=== PATIENT | female | born 1935 | race Two or more races ===

== ENCOUNTER 2017-03-21 11:01 | Outpatient (CLI) | payer MEDICARE, OTHER ==
[~2017-03-21 11:01] MED LIST: AMBIEN10 M1 ORAL; AUGMENTIN 500M500 MG ORAL; BIAXIN500 MG ORAL; DEXILANT60 MG ORAL; HYCODAN; IBUPROFEN600 MG ORAL; LEXAPRO10 MG ORAL; PERCOCET1 TAB ORAL; PROAIR HFA8.5 GM INH; VIAGRA25 MG ORAL; cholesterol med
[2017-03-21 11:20] VITALS: BP 117/53
--- NOTE | 2017-03-21 11:33 | GI Progress Note ---
Assessment/Plan Problems: (1) GERD (gastroesophageal reflux disease) ICD Codes: K21.9 - Gastro-esophageal reflux disease without esophagitis SNOMED: 122244193 (2) Ischemic colitis ICD Codes: K55.9 - Vascular disorder of intestine, unspecified SNOMED: 87291087 (3) Gastritis ICD Codes: K29.70 - Gastritis, unspecified, without bleeding SNOMED: 0936418 (4) Diverticulosis ICD Codes: K57.90 - Diverticulosis of intestine, part unspecified, without perforation or abscess without bleeding SNOMED: 153403354 (5) History of colon polyps ICD Codes: Z86.010 - Personal history of colonic polyps SNOMED: 936535348 Status: stable Status Narrative Seen with Dr. Perez. Assessment/Plan colonic polyps x 2 in 2013 recommend EGD/colonoscopy >> refused by daughter at this time rx PPI BID ordered abdominal U/S f/u with cardiology RTC x 3 weeks Subjective Subjective abdominal pain / epigastric Objective T 97.7 BP 117/53 95 General Appearance: no apparent distress, alert Cardiovascular: normal rate Respiratory/Chest: normal breath sounds, no respiratory distress Abdominal Exam: normal bowel sounds, non tender, soft Extremities: normal range of motion Anne Olmedo N.P. Mar 21, 2017 11:33
== END 2017-03-21 11:30 | disposition home or self-care (01) ==
LOC: PAN 11:01
DX: K21.9 Gastro-esophageal reflux disease without esophagitis (principal); K55.9 Vascular disorder of intestine, unspecified; K29.70 Gastritis, unspecified, without bleeding; Z86.010 Personal history of colon polyps
CPT/HCPCS: 99211

== ENCOUNTER 2017-04-11 10:54 | Outpatient (CLI) | payer MEDICARE, OTHER ==
[2017-04-11 11:05] VITALS: BP 121/61
--- NOTE | 2017-04-11 11:17 | GI Progress Note ---
Assessment/Plan Problems: (1) Abdominal pain ICD Codes: R10.9 - Unspecified abdominal pain SNOMED: 49036479 (2) GERD (gastroesophageal reflux disease) ICD Codes: K21.9 - Gastro-esophageal reflux disease without esophagitis SNOMED: 489775470 (3) History of colon polyps ICD Codes: Z86.010 - Personal history of colonic polyps SNOMED: 081198491 Status: stable Status Narrative Seen with Dr. Perez. Assessment/Plan abdominal U/S reviewed with patient, see full report in chart. - pancreatic duct at 0.5cm diameter is prominent, cause unclear. - CBC @ 0.8 cm considered normal. lab draws; CBC, CMP, amylase/lipase, CEA, CA19-9 RTC x after labs are resulted Subjective Subjective abdominal pain Objective Last 24 Hour Vital Signs Date Time Temp Pulse Resp B/P Pulse Ox O2 Delivery O2 Flow Rate FiO2 04/11/17 11:05 96.2 85 16 121/61 General Appearance: no apparent distress, alert Cardiovascular: normal rate Respiratory/Chest: normal breath sounds, no respiratory distress Abdominal Exam: normal bowel sounds, non tender, soft Extremities: normal range of motion Anne Olmedo NAngelica Apr 11, 2017 11:17
[2017-04-11 14:01] LABS: BASOPHILS % (AUTO) 1.4 % (0.0-2.0); EOSINOPHILS % (AUTO) 3.3 % (0.0-3.0); MEAN CORPUSCULAR VOLUME 100 FL (80-99); MEAN PLATELET VOLUME 9.8 FL (6.5-10.1); MONOCYTES % (AUTO) 6.8 % (1.0-10.0); NEUTROPHILS % (AUTO) 64.5 % (45.0-75.0); PLATELET COUNT 234 K/UL (150-450); RED BLOOD COUNT 4.29 M/UL (4.20-5.40); RED CELL DISTRIBUTION WIDTH 12.5 % (11.6-14.8); WHITE BLOOD COUNT 8.3 K/UL (4.8-10.8)
[2017-04-11 14:14] LABS: ALANINE AMINOTRANSFERASE 15 U/L (3-33); ALBUMIN/GLOBULIN RATIO 1.5 (1.0-2.7); AMYLASE 43 U/L (10-110); ANION GAP 14 (5-15); ASPARTATE AMINO TRANSFERASE 20 U/L (5-40); CALCIUM 9.9 mg/dL (8.6-10.2); CARBON DIOXIDE 26 mEQ/L (20-30); CHLORIDE 100 mEQ/L (98-107); CREATININE 1.2 mg/dL (0.5-0.9); HEMOLYSIS 0; LIPASE 37 U/L (< 60); POTASSIUM 4.2 mEQ/L (3.4-4.9); SODIUM 140 mEQ/L (135-145); TOTAL PROTEIN 7.1 g/dL (6.6-8.7)
== END 2017-04-11 11:45 | disposition home or self-care (01) ==
LOC: PAN 10:54
DX: R10.9 Unspecified abdominal pain (principal); K21.9 Gastro-esophageal reflux disease without esophagitis; Z86.010 Personal history of colon polyps
CPT/HCPCS: 36415; 80053; 82150; 82378; 83690; 85025; 86301; G0463; 99211

== ENCOUNTER 2017-07-18 10:53 | Outpatient (CLI) | payer MEDICARE, OTHER ==
[2017-07-18 11:03] VITALS: BP 138/44
[2017-07-18] MEDS ORDERED: GABAPENTIN100 MG ORAL (11:07)
[2017-07-18] MEDS ORDERED: VITAMIN D250000 UNI1 ORAL (11:07)
[2017-07-18] MEDS ORDERED: BACLOFEN10 MG ORAL (11:07)
[2017-07-18] MEDS ORDERED: LASIX20 M1 ORAL (11:07)
[2017-07-18] MEDS ORDERED: METHOCARBAMOL500 MG ORAL (11:07)
--- NOTE | 2017-07-18 12:21 | GI Progress Note ---
Assessment/Plan Problems: (1) Constipation ICD Codes: K59.00 - Constipation, unspecified SNOMED: 57716792 (2) Abdominal pain ICD Codes: R10.9 - Unspecified abdominal pain SNOMED: 24680147 Status: stable Status Narrative Seen with Dr. Perez. Assessment/Plan abdominal U/S reviewed with patient, see full report in chart. - pancreatic duct at 0.5cm diameter is prominent, cause unclear. - CBC @ 0.8 cm considered normal. rx Amitiza 24 BID RTC x 3 months Subjective Subjective abdominal pain Objective Last 24 Hour Vital Signs Date Time Temp Pulse Resp B/P (MAP) Pulse Ox O2 Delivery O2 Flow Rate FiO2 07/18/17 11:03 97.7 79 20 138/44 97 General Appearance: no apparent distress, alert Cardiovascular: normal rate Respiratory/Chest: normal breath sounds, no respiratory distress Abdominal Exam: normal bowel sounds, non tender, soft Extremities: normal range of motion Anne Olmedo N.P. Jul 18, 2017 12:21
== END 2017-07-18 12:53 | disposition home or self-care (01) ==
LOC: PAN 10:53
DX: K59.00 Constipation, unspecified (principal); R10.9 Unspecified abdominal pain
CPT/HCPCS: 99211

== ENCOUNTER 2017-09-04 13:49 | Outpatient (CLI) | payer MEDICARE, OTHER ==
[~2017-09-04 13:49] MED LIST changes: +BACLOFEN10 MG ORAL; +GABAPENTIN100 MG ORAL; +LASIX20 M1 ORAL; +METHOCARBAMOL500 MG ORAL; +VITAMIN D250000 UNI1 ORAL
--- NOTE | 2017-09-04 14:33 | GI Progress Note ---
Assessment/Plan Problems: (1) Ischemic colitis ICD Codes: K55.9 - Vascular disorder of intestine, unspecified SNOMED: 80916620 (2) Gastritis ICD Codes: K29.70 - Gastritis, unspecified, without bleeding SNOMED: 9641200 (3) GERD (gastroesophageal reflux disease) ICD Codes: K21.9 - Gastro-esophageal reflux disease without esophagitis SNOMED: 670556612 (4) Constipation ICD Codes: K59.00 - Constipation, unspecified SNOMED: 19859939 (5) Abdominal pain ICD Codes: R10.9 - Unspecified abdominal pain SNOMED: 49059920 Status: stable, unchanged Status Narrative Seen with Dr. Perez. Assessment/Plan abdominal U/S reviewed with patient, see full report in chart. - pancreatic duct at 0.5cm diameter is prominent, cause unclear. - CBC @ 0.[address] AP reviewed with patient, see full report in chart. 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 Recommendations CT findings are not consistent with abdominal pain. RX tylenol for arthritis cont Amitiza 24 BID recommend Align RTC prn Subjective Gastrointestinal/Abdominal: Reports: constipated Subjective abdominal pain when bending over Objective T 98.1 BP 149/72 P 73 96 RA General Appearance: WD/WN, no apparent distress, alert Cardiovascular: normal rate Respiratory/Chest: normal breath sounds, no respiratory distress Abdominal Exam: normal bowel sounds, non tender, soft Extremities: normal range of motion, non-tender Anne Olmedo N.P. Sep 04, 2017 14:33
[2017-09-04] MEDS ORDERED: AMITIZA24 MCG ORAL (14:34)
[2017-09-04 15:23] VITALS: BP 149/72
== END 2017-09-04 14:25 | disposition home or self-care (01) ==
LOC: PAN 13:49
DX: K55.9 Vascular disorder of intestine, unspecified (principal); K29.70 Gastritis, unspecified, without bleeding; K21.9 Gastro-esophageal reflux disease without esophagitis; K59.00 Constipation, unspecified; R10.9 Unspecified abdominal pain
CPT/HCPCS: 99212